=== PATIENT | female | born 1980 | race Caucasian/White ===

== ENCOUNTER 2019-06-24 12:38 | Emergency (ER) | payer OTHER, MEDICAID, SELFPAY ==
[2019-06-24] VITALS (11 sets, daily range): BP systolic 164–246; BP diastolic 74–119; PULSE 70–77; RESP 13–23; TEMP 36.2; O2SAT 98–100
--- NOTE | 2019-06-24 12:53 | DI.RAD.S_ITS ---
PROCEDURE: XR CHEST 1V INDICATIONS: chest pain TECHNIQUE: One view of the chest was acquired. COMPARISON: [facility], CR, XR CHEST 1 VIEW, 05/15/2019, 19:25. FINDINGS: Surgical changes and devices: None. Lungs and pleura: Unchanged appearance of bronchovascular crowding secondary to poor inspiratory effort. No consolidations or effusions. Mediastinum: Mediastinal contours appear normal. Heart size is normal. Bones and chest wall: No suspicious bony lesions. Overlying soft tissues appear unremarkable. IMPRESSION: No consolidations. Dictated by: Linda Cisse M.D. on 06/24/2019 at 12:16 Approved by: Linda Cisse M.D. on 06/24/2019 at 12:17
--- NOTE | 2019-06-24 13:09 | ED_ITS ---
HPI - Nausea/Vomiting/Diarrhea General Chief complaint: Nausea/Vomiting/Diarrhea Stated complaint: Vomitting and Pain Time Seen by Provider: 06/24/19 13:09 Source: patient Mode of arrival: Ambulatory Limitations: no limitations History of Present Illness HPI Narrative: 38-year-old woman type 1 diabetic for at least 20 years presents with increasing head pain, nausea and vomiting. She has never been officially diagnosed with migraines but is wondering if that is part of what is going on. Her current symptoms have worsened over the past 3 days. She describes no fevers, cough, chills, chest pain. She notes vomiting and diarrhea. Of note her blood sugars have not been more erratic over the past few days and she does have an insulin pump in place and regularly check some. Related Data Allergies Allergy/AdvReac Type Severity Reaction Status Date / Time No Known Drug Allergies Allergy Verified 06/24/19 13:57 Review of Systems Review of Systems Narrative: All systems reviewed and are unremarkable except as noted in HPI and below Patient History Medical History (Updated 06/24/19 @ 16:51 by Rhoda Roe MD) Type 1 diabetes (Acute) Social History Smoking Status: Former smoker Smoking Status: Former smoker alcohol intake frequency: 0-2 drinks per day Substance Use Type: does not use Exam Narrative Exam Narrative: General: In moderate distress due to headache pain. Able to give a complete and coherent history. Well-nourished well-developed HEENT: Moist mucous membranes, normal sclera with reactive pupils, Neck: No JVD, supple Respiratory: Lungs are clear to auscultation, no wheezing no rales no rhonchi. Full and symmetrical air movement Cardiac: Regular rate and rhythm no murmurs no bruits Abdomen: Soft nontender good bowel tones, no flank pain Skin: Warm and dry, no rashes Neurologic: Grossly neurologically intact with no obvious asymmetries or abnormalities Extremities: No trauma, well perfused Psych: Cooperative, appropriate insight and affect Initial Vital Signs Initial Vital Signs: Vital Signs Temperature 97.2 F L 06/24/19 12:48 Pulse Rate 77 06/24/19 12:48 Respiratory Rate 18 06/24/19 12:48 Blood Pressure 226/107 H 06/24/19 12:48 Pulse Oximetry 99 06/24/19 12:48 Course Orders Ordered: ED Orders 06/24/19 12:53 XR chest 1V Stat EKG-12 Lead Stat 06/24/19 13:32 Complete Blood Count AUTO DIFF Stat Comprehensive Metabolic Panel Stat Lipase Stat Partial Thromboplastin Time Stat Prothrombin Time INR Stat Troponin & CK Cardiac Panel Stat 06/24/19 15:43 Urine Microscopic Stat Sodium Chloride (Normal Saline 0.9%) 1,000 mls @ 1,000 mls/hr IV BOLUS PRN PRN Reason: Fluid replacement Last Infusion: 06/24/19 15:31 Dose: 0 mls/hr Documented by: Admin: 06/24/19 13:45 Dose: 1,000 mls/hr Documented by: SERGIO Discontinued Medications Diphenhydramine HCl (Benadryl) 25 mg IV NOW ONE Stop: 06/24/19 13:20 Last Admin: 06/24/19 13:46 Dose: 25 mg Documented by: SERGIO Ketorolac Tromethamine (Toradol) 15 mg IV NOW ONE Stop: 06/24/19 13:20 Last Admin: 06/24/19 13:46 Dose: 15 mg Documented by: SERGIO Labetalol HCl (Trandate) 20 mg IV NOW ONE Stop: 06/24/19 13:56 Last Admin: 06/24/19 13:58 Dose: 20 mg Documented by: SERGIO Metoclopramide HCl (Reglan) 10 mg IV NOW ONE Stop: 06/24/19 13:20 Last Admin: 06/24/19 13:46 Dose: 10 mg Documented by: SERGIO Vital Signs Vital signs: Vital Signs - 8 hr 06/24/19 12:48 06/24/19 13:20 06/24/19 13:30 Temperature 97.2 F L Pulse Rate 77 72 74 Respiratory Rate 18 16 Blood Pressure 226/107 H Blood Pressure [Right Arm] 237/105 H 227/98 H Pulse Oximetry 99 100 06/24/19 13:53 06/24/19 13:58 06/24/19 14:07 Temperature Pulse Rate 77 77 71 Respiratory Rate 18 18 Blood Pressure 246/119 H Blood Pressure [Right Arm] 246/119 H 219/95 H Pulse Oximetry 99 06/24/19 14:35 06/24/19 15:26 06/24/19 15:31 Temperature Pulse Rate 72 71 70 Respiratory Rate 18 23 Blood Pressure 180/110 H Blood Pressure [Right Arm] 180/77 H 181/86 H Pulse Oximetry 99 98 06/24/19 16:00 Temperature Pulse Rate 77 Respiratory Rate 18 Blood Pressure Blood Pressure [Right Arm] 196/87 H Pulse Oximetry 99 MDM - Nausea/Vomiting/Diarrhea Medical Records Attestation: I reviewed the patient's medical records. Lab Data Attestation: I reviewed the patient's lab results. Result diagrams: 06/24/19 13:32 06/24/19 13:32 Labs: Lab Results 06/24/19 06/24/19 06/24/19 Range/Units 13:32 13:32 13:32 WBC 12.1 H (4.5-11.0) X10^3/uL RBC 4.70 (4.0-5.2) X10^6/uL Hgb 13.6 (12.0-16.0) g/dL Hct 40.8 (36-46) % MCV 86.7 (80-100) fL MCH 28.8 (26-34) PG MCHC 33.3 (30-36) % RDW 12.9 (11.6-14.8) % Plt Count 342 (150-400) X10^3/uL Neut % (Auto) 87.0 H (50-75) % Lymph % (Auto) 9.3 L (25-40) % [place] % (Auto) 2.5 L (3-14) % Eos % (Auto) 0.5 L (2-4) % Baso % (Auto) 0.7 (0-2) % Neut # (Auto) 92117 H (1557-3408) /uL Lymph # (Auto) 1100 (5271-8190) /uL [place] # (Auto) 300 (0-900) /uL Eos # (Auto) 100 (0-450) /uL Baso # (Auto) 100 (0-100) /uL PT 10.3 (10.1-12.7) SECONDS INR 0.9 (0.9-1.3) APTT 32 (26.4-36.2) SECONDS Sodium 134 L (137-145) mmol/L Potassium 4.3 (3.4-5.1) mmol/L Chloride 103 (98-107) mmol/L Carbon Dioxide 26 (22-32) mmol/L BUN 20 H (7-17) mg/dL Creatinine 1.23 H (0.52-1.04) mg/dL Estimated GFR 49.1 L (>60) mL/min BUN/Creatinine Ratio 16.3 (6-22) Glucose 176 H (70-100) mg/dL Calcium 8.6 (8.4-10.2) mg/dL Total Bilirubin 0.3 (0.2-1.3) mg/dL AST 23 (14-36) IU/L ALT 18 (<35) IU/L Alkaline Phosphatase 99 (38-126) U/L Total Creatine Kinase 59 (30-135) U/L CK-MB (CK-2) TNP CK-MB (CK-2) Rel Index TNP Troponin I < 0.012 (0.01-0.034) ng/mL Total Protein 6.4 (6.3-8.2) g/dL Albumin 3.2 L (3.5-5.0) g/dL Globulin 3.2 (1.7-4.1) g/dL Albumin/Globulin Ratio 1.0 (1.0-2.8) Lipase 45 (23-300) U/L Urine RBC (0-5/HPF) Urine WBC (0-5/HPF) Ur Squamous Epith Cells (0-5/HPF) Amorphous Sediment Urine Bacteria (None) Hyaline Casts (None) Granular Casts (None) Ur Culture Indicated? 06/24/19 Range/Units 15:43 WBC (4.5-11.0) X10^3/uL RBC (4.0-5.2) X10^6/uL Hgb (12.0-16.0) g/dL Hct (36-46) % MCV (80-100) fL MCH (26-34) PG MCHC (30-36) % RDW (11.6-14.8) % Plt Count (150-400) X10^3/uL Neut % (Auto) (50-75) % Lymph % (Auto) (25-40) % [place] % (Auto) (3-14) % Eos % (Auto) (2-4) % Baso % (Auto) (0-2) % Neut # (Auto) (2983-7230) /uL Lymph # (Auto) (0176-4548) /uL [place] # (Auto) (0-900) /uL Eos # (Auto) (0-450) /uL Baso # (Auto) (0-100) /uL PT (10.1-12.7) SECONDS INR (0.9-1.3) APTT (26.4-36.2) SECONDS Sodium (137-145) mmol/L Potassium (3.4-5.1) mmol/L Chloride (98-107) mmol/L Carbon Dioxide (22-32) mmol/L BUN (7-17) mg/dL Creatinine (0.52-1.04) mg/dL Estimated GFR (>60) mL/min BUN/Creatinine Ratio (6-22) Glucose (70-100) mg/dL Calcium (8.4-10.2) mg/dL Total Bilirubin (0.2-1.3) mg/dL AST (14-36) IU/L ALT (<35) IU/L Alkaline Phosphatase (38-126) U/L Total Creatine Kinase (30-135) U/L CK-MB (CK-2) CK-MB (CK-2) Rel Index Troponin I (0.01-0.034) ng/mL Total Protein (6.3-8.2) g/dL Albumin (3.5-5.0) g/dL Globulin (1.7-4.1) g/dL Albumin/Globulin Ratio (1.0-2.8) Lipase (23-300) U/L Urine RBC 1-5/hpf (0-5/HPF) Urine WBC 1-5/hpf (0-5/HPF) Ur Squamous Epith Cells 0-1 /hpf (0-5/HPF) Amorphous Sediment 1+ Urine Bacteria Occasional (0-1) (None) Hyaline Casts 1-5/lpf (None) Granular Casts 0-1/lpf (None) Ur Culture Indicated? Cult not indicated Point of Care Testing Test Results Negative Glucose POC 135 Urine Dip Bedside Urine Glucose 250 mg/dl Bedside Urine Bilirubin - Negative Bedside Urine Ketone - Negative Urine Specific [place] 1.015 Bedside Urine Occult Blood +/- Bedside Urine pH 7.0 Bedside Urine Protein ++++ 2000 Bedside Urine Urobilinogen - Negative Bedside Urine Nitrite - Negative Bedside Urine Leukocytes - Negative Esterase Imaging Data Chest x-ray: Radiologist's Impression: IMPRESSION: No consolidations. Dictated by: Linda Cisse M.D. on 06/24/2019 at 12:16 ECG Data Attestation: I personally reviewed and interpreted this ECG as follows: Interpretation: Normal sinus rhythm at a rate of 72 Normal axis normal intervals R-wave in aVL is elevated suggesting possibility of developing left ventricular hypertrophy No acute ischemic changes MDM Narrative Medical decision making narrative: Type 1 diabetic followed by any control over in [place]. She believes that her baseline creatinine has been slightly elevated but isn't quite aware of the number. Last her to follow-up with any within the week to recheck. Also asked her to check blood pressures daily to again follow-up. With his elevated is they are she may need to be on medication both for renal protection as well as hypertension control Blood sugars have been doing nicely with her insulin pump no suggested changes She is significantly better on re-examination with headache resolved and she is hungry and ready for discharge. I believe that she is safe to discharge home Discharge Plan Departure Patient Disposition: Home Clinical Impression: Type 1 diabetes Qualifiers: Diabetes mellitus complication status: without complication Qualified Code(s): E10.9 - Type 1 diabetes mellitus without complications Headache Qualifiers: Headache type: unspecified Headache chronicity pattern: acute headache Int ractability: not intractable Qualified Code(s): R51 - Headache Hypertension Qualifiers: Hypertension type: unspecified Qualified Code(s): I10 - Essential (primary) hypertension Instructions: DI for Dehydration -- Adult Activity Restrictions/Additional Instructions: Thank you for coming in today I do not have an exact diagnosis for you but I am also not finding any life- threatening issues. Your creatinine was 1.3 today. Please follow-up with Janie Christine. We need to confirm that your creatinine is either improving or at your stable baseline and I would also like you to talk with her about your blood pressure. He said you do have a blood pressure cuff at home, please check your blood pressure at least once a day(you do not need to do anything at all with the number other than right down) and bring it in with you to your follow-up appointment If you find you have new or worsening symptoms, please return to the emergency department and I am happy to fully re-evaluate
[2019-06-24 13:42] LABS: Add Manual Diff / Slide Review NO; Basophils Absolute Auto 100 /uL (0-100); Basophils Percent Auto 0.7 % (0-2); Eosinophils Absolute Auto 100 /uL (0-450); Eosinophils Percent Auto 0.5 % (2-4); Hematocrit 40.8 % (36-46); Hemoglobin 13.6 g/dL (12.0-16.0); Lymphocytes Absolute Auto 1100 /uL (1100-4500); Lymphocytes Percent Auto 9.3 % (25-40); Mean Corpuscular HGB Conc 33.3 % (30-36); Mean Corpuscular Hemoglobin 28.8 PG (26-34); Mean Corpuscular Volume 86.7 fL (80-100); Monocytes Absolute Auto 300 /uL (0-900); Monocytes Percent Auto 2.5 % (3-14); Neutrophils Absolute Auto 10500 /uL (1500-7000); Platelet Count 342 X10^3/uL (150-400); Red Cell Distribution Width 12.9 % (11.6-14.8); White Blood Cell Count 12.1 X10^3/uL (4.5-11.0)
[2019-06-24] MEDS: SODIUM CHLORIDE 0.9% 1,000 ML 1000 ML IV (13:45)
[2019-06-24] MEDS: METOCLOPRAMIDE 10 MG/2 ML INJ IV (13:46)
[2019-06-24] MEDS: diphenhydrAMINE 50 MG/ML VIAL 25 MG IV (13:46)
[2019-06-24] MEDS: KETOROLAC 60 MG/2 ML VIAL 15 MG IV (13:46)
[2019-06-24 13:50] LABS: INR 0.9 (0.9-1.3); Prothrombin Time 10.3 SECONDS (10.1-12.7)
[2019-06-24 13:53] LABS: PTT Partial Thromboplastin Tim 32 SECONDS (26.4-36.2)
[2019-06-24] MEDS: LABETALOL 20 MG/4 ML SYRINGE IV (13:58)
[2019-06-24 14:07] LABS: Alanine Aminotransferase 18 IU/L (<35); Albumin 3.2 g/dL (3.5-5.0); Alkaline Phosphatase 99 U/L (38-126); Aspartate Aminotransferase 23 IU/L (14-36); BUN Creatinine Ratio 16.3 (6-22); Bilirubin Total 0.3 mg/dL (0.2-1.3); Blood Urea Nitrogen 20 mg/dL (7-17); Calcium 8.6 mg/dL (8.4-10.2); Carbon Dioxide 26 mmol/L (22-32); Chloride 103 mmol/L (98-107); Creatine Kinase 59 U/L (30-135); Estimated Glomerular Filt Rate 49.1 mL/min (>60); Globulin 3.2 g/dL (1.7-4.1); Glucose 176 mg/dL (70-100); HEMOLYSIS < 15 (0-50); Lipase 45 U/L (23-300); Potassium 4.3 mmol/L (3.4-5.1); Sodium 134 mmol/L (137-145); Total Protein 6.4 g/dL (6.3-8.2)
[2019-06-24 14:16] LABS: Troponin I < 0.012 ng/mL (0.01-0.034)
[2019-06-24 16:02] LABS: Amorphous Sediment Urine 1+; Bacteria Urine Occasional (0-1); Granular Casts Urine 0-1/LPF; Hyaline Casts Urine 1-5/LPF; RBC Urine 1-5/HPF (0-5/HPF); Squamous Epithelial Cell Urine 0-1 /HPF (0-5/HPF); WBC Urine 1-5/HPF (0-5/HPF)
[2019-06-24 16:03] LABS: Culture Indicated Urine Cult Not Indicated
== END 2019-06-24 17:05 | disposition home or self-care (01) ==
PROVIDERS: Emergency Provider Emergency Medicine
DX: E10.9 Type 1 diabetes mellitus without complications (principal); R51 Headache; I10 Essential (primary) hypertension; R11.2 Nausea with vomiting, unspecified; R07.9 Chest pain, unspecified
CPT/HCPCS: 36415; 71045; 80053; 81003; 81015; 81025; 82550; 82962; 83690; 84484; 85025; 85610; 85730; 93005; 96361; 96374; 96375; 99284; 99285; J1200; J1885; J2765

== ENCOUNTER → 2019-07-06 14:59 | Outpatient (CLI) | payer OTHER, MEDICAID, SELFPAY | PROVIDERS: Visit Provider Physician Assistant | DX: J02.9 Acute pharyngitis, unspecified (principal) | CPT/HCPCS: 87070 ==

== ENCOUNTER → 2019-07-07 11:47 | Outpatient (CLI) | payer OTHER, MEDICAID, SELFPAY ==
[2019-07-09 04:12] LABS: COVID19 Sendout Not Detected (Not Detected)
== END ==
PROVIDERS: Visit Provider Physician Assistant
DX: R05 Cough (principal)
CPT/HCPCS: 87635

== ENCOUNTER 2019-07-08 10:51 | Emergency (ER) | payer OTHER, MEDICAID, SELFPAY ==
[2019-07-08 11:00] VITALS: BP 185/109; PULSE 93; RESP 16; TEMP 36.7; O2SAT 97; BMI 36.6
--- NOTE | 2019-07-08 11:32 | DI.RAD.S_ITS ---
PROCEDURE: XR CHEST 2V INDICATIONS: cough, sob TECHNIQUE: 2 views of the chest were acquired. COMPARISON: Merged With [facility], CR, XR CHEST 1V, 06/24/2019, 12:55. FINDINGS: Surgical changes and devices: None. Lungs and pleura: There is questionable developing airspace disease within the lung bases. No effusion or pneumothorax is identified. Mediastinum: Mediastinal contours are normal. Heart size is normal. Bones and chest wall: No suspicious bony abnormalities. Soft tissues appear unremarkable. IMPRESSION: Possible developing basilar airspace disease is concerning for pneumonia. Dictated by: Jerzy Juarez M.D. on 07/08/2019 at 10:55 Approved by: Jerzy Juarez M.D. on 07/08/2019 at 10:55
--- NOTE | 2019-07-08 11:35 | ED_ITS ---
HPI - URI/Sore Throat <Jimena Villaseñor, FORESTRY HUNTER-BC - Last Filed: 07/08/19 16:09> General Chief Complaint: Upper Respiratory Symptoms Stated Complaint: High BP, cough, sore throat, earache Time Seen by Provider: 07/08/19 11:09 Source: patient Mode of arrival: Ambulatory Limitations: no limitations History of Present Illness HPI Narrative: The patient is a 38-year-old female nonsmoker with history of type 1 diabetes who presents for chief of multiple medical complaints. She presents with a chief complaint of cough, earache, sore throat and high blood pressure. She states she was seen and evaluated this facility approximately 2 weeks ago for a migraine, high blood pressure and was discharged. She states she was seen at the walk-in clinic on the of this month, had a throat culture and rapid strep done. She returned on 07/06 for covid19 testing. The patient states that she has had cough and congestion symptoms since 07/05. She states that she has had headaches every day for the past several weeks, starting in the morning when she wakes up. She took 2 ibuprofen with methocarbamol from [facility] earlier today. She states that she took her home blood pressure and found it to be over 200 systolic, she called her primary care provider who is with [facility] and [place] who told her she was having a hypertensive emergency and to come to the emergency department right away. She denies any chest pain she states that her headache is actually better than it has been recently. Patient states that she feels much better than she was 2 weeks ago, which she states she had such a bad headache that she was vomiting. She states she has not followed up with her primary care provider in person since her emergency department visit on 06/24/2019. She states that when she was here 2 weeks ago, she found that her creatinine was elevated, but does not know it was beforehand. She does have a history of type 1 diabetes, states that her blood sugars are very well controlled. She denies any abdominal pain nausea vomiting or diarrhea. Related Data Previous Rx's Medication Instructions Recorded doxycycline hyclate 100 mg PO BID #20 cap 07/08/19 lisinopril 5 mg PO DAILY #20 tab 07/08/19 Allergies Allergy/AdvReac Type Severity Reaction Status Date / Time No Known Drug Allergies Allergy Verified 07/06/19 14:44 Review of Systems <FRANKO Kuhn-BC - Last Filed: 07/08/19 16:09> Review of Systems Narrative: GENERAL: Denies chills, fatigue, malaise, fever, sweats. HEENT: See HPI RESPIRATORY: See HPI CARDIOVASCULAR: Denies chest pain, palpitations, orthopnea, edema, GASTROINTESTINAL: Denies nausea, vomiting, abdominal pain, diarrhea, constip ation, melena. : Denies dysuria, frequency, incontinence, hematuria, urinary retention. MUSCULOSKELETAL: denies weakness, joint pain, or bony pain SKIN: Denies rash, skin lesions, or other NEUROLOGIC: Denies weakness, headache, numbness, change in speech, confusion, seizures, incoordination. PSYCHIATRIC: No concerning psychosocial issues. 12 point review of systems is negative except for those stated above Patient History <RAMANA Kuhn - Last Filed: 07/08/19 16:09> Medical History (Updated 07/09/19 @ 00:01 by ) Type 1 diabetes (Acute) Social History Smoking Status: Never smoker Smoking Status: Never smoker alcohol intake frequency: 0-2 drinks per day Substance Use Type: does not use Exam <RAMANA Kuhn - Last Filed: 07/08/19 16:09> Narrative Exam Narrative: GENERAL: This is a well-nourished, well-developed patient, in no acute distress HEAD: Atraumatic. Normocephalic. No temporal or scalp tenderness. EYES: Pupils equal round and reactive. Extraocular motions intact. No scleral icterus. No injection or drainage. ENT: Nose without bleeding, purulent drainage or septal hematoma. Throat without erythema, tonsillar hypertrophy or exudate. Uvula midline. Airway patent. Bilateral TMs pearly brownlee. NECK: Trachea midline. No JVD or lymphadenopathy. Supple, nontender, no meningeal signs. CARDIOVASCULAR: Regular rate and rhythm RESPIRATORY: Clear to auscultation. Breath sounds equal bilaterally. No wheezes, rales, or rhonchi. No cough. No increased respiratory effort. No accessory muscle use. GASTROINTESTINAL: Abdomen soft, non-tender, nondistended. No hepato- splenomegaly, or palpable masses. No guarding. EXTREMITIES: No clubbing, cyanosis, or edema. No joint tenderness, effusion, or edema noted. BACK: Nontender without deformity or crepitance. No flank tenderness. NEURO: AOx3. SKIN: No rash or erythema. Initial Vital Signs Initial Vital Signs: Vital Signs Temperature 98.0 F 07/08/19 11:00 Pulse Rate 93 H 07/08/19 11:00 Respiratory Rate 16 07/08/19 11:00 Blood Pressure 185/109 H 07/08/19 11:00 Pulse Oximetry 97 07/08/19 11:00 <Rhoda Roe MD - Last Filed: 07/09/19 07:04> Initial Vital Signs Initial Vital Signs: Vital Signs Temperature 98.0 F 07/08/19 11:00 Pulse Rate 93 H 07/08/19 11:00 Respiratory Rate 16 07/08/19 11:00 Blood Pressure 185/109 H 07/08/19 11:00 Pulse Oximetry 97 07/08/19 11:00 Course <FRANKO Kuhn-BC - Last Filed: 07/08/19 16:09> Orders Ordered: Discontinued Medications Diphenhydramine HCl (Benadryl) 25 mg IV NOW ONE Stop: 07/08/19 12:02 Last Admin: 07/08/19 12:31 Dose: 25 mg Documented by: DAE Sodium Chloride (Normal Saline 0.9%) 1,000 mls @ 1,000 mls/hr IV BOLUS ONE Stop: 07/08/19 13:00 Last Infusion: 07/08/19 14:14 Dose: 0 mls/hr Documented by: Admin: 07/08/19 12:31 Dose: 1,000 mls/hr Documented by: DAE Ketorolac Tromethamine (Toradol) 15 mg IV NOW ONE Stop: 07/08/19 12:02 Last Admin: 07/08/19 12:32 Dose: 15 mg Documented by: DAE Lisinopril (Zestril) 5 mg PO NOW ONE Stop: 07/08/19 13:50 Last Admin: 07/08/19 14:08 Dose: 5 mg Documented by: GALEN Vital Signs Vital signs: Vital Signs - 8 hr 07/08/19 11:00 07/08/19 12:25 07/08/19 14:49 Temperature 98.0 F Pulse Rate 93 H 74 80 Respiratory Rate 16 14 16 Blood Pressure 185/109 H Blood Pressure [Left Arm] 190/93 H 218/101 H Pulse Oximetry 97 100 98 <Rhoda Roe MD - Last Filed: 07/09/19 07:04> Orders Ordered: Discontinued Medications Diphenhydramine HCl (Benadryl) 25 mg IV NOW ONE Stop: 07/08/19 12:02 Last Admin: 07/08/19 12:31 Dose: 25 mg Documented by: DAE Sodium Chloride (Normal Saline 0.9%) 1,000 mls @ 1,000 mls/hr IV BOLUS ONE Stop: 07/08/19 13:00 Last Infusion: 07/08/19 14:14 Dose: 0 mls/hr Documented by: Admin: 07/08/19 12:31 Dose: 1,000 mls/hr Documented by: DAE Ketorolac Tromethamine (Toradol) 15 mg IV NOW ONE Stop: 07/08/19 12:02 Last Admin: 07/08/19 12:32 Dose: 15 mg Documented by: DAE Lisinopril (Zestril) 5 mg PO NOW ONE Stop: 07/08/19 13:50 Last Admin: 07/08/19 14:08 Dose: 5 mg Documented by: GALEN Vital Signs Vital signs: Vital Signs - 8 hr 07/08/19 11:00 07/08/19 12:25 07/08/19 14:49 Temperature 98.0 F Pulse Rate 93 H 74 80 Respiratory Rate 16 14 16 Blood Pressure 185/109 H Blood Pressure [Left Arm] 190/93 H 218/101 H Pulse Oximetry 97 100 98 MDM - URI/Sore Throat <SASHA Kuhn - Last Filed: 07/08/19 16:09> Lab Data Result diagrams: 07/08/19 12:20 07/08/19 12:20 Labs: Lab Results 07/08/19 07/08/19 07/08/19 Range/Units 12:20 12:20 12:20 WBC 12.5 H (4.5-11.0) X10^3/uL RBC 4.87 (4.0-5.2) X10^6/uL Hgb 14.2 (12.0-16.0) g/dL Hct 41.8 (36-46) % MCV 85.8 (80-100) fL MCH 29.2 (26-34) PG MCHC 34.0 (30-36) % RDW 12.4 (11.6-14.8) % Plt Count 338 (150-400) X10^3/uL Neut % (Auto) 73.5 (50-75) % Lymph % (Auto) 18.1 L (25-40) % [place] % (Auto) 5.2 (3-14) % Eos % (Auto) 2.6 (2-4) % Baso % (Auto) 0.6 (0-2) % Neut # (Auto) 9200 H (8159-7562) /uL Lymph # (Auto) 2300 (6578-5510) /uL [place] # (Auto) 700 (0-900) /uL Eos # (Auto) 300 (0-450) /uL Baso # (Auto) 100 (0-100) /uL PT 10.9 (10.1-12.7) SECONDS INR 1.0 (0.9-1.3) APTT 36 D (26.4-36.2) SECONDS Sodium 135 L (137-145) mmol/L Potassium 4.2 (3.4-5.1) mmol/L Chloride 104 (98-107) mmol/L Carbon Dioxide 28 (22-32) mmol/L BUN 21 H (7-17) mg/dL Creatinine 1.50 H (0.52-1.04) mg/dL Estimated GFR 39.1 L (>60) mL/min BUN/Creatinine Ratio 14.0 (6-22) Glucose 142 H (70-100) mg/dL Calcium 8.7 (8.4-10.2) mg/dL Total Bilirubin 0.3 (0.2-1.3) mg/dL AST 17 (14-36) IU/L ALT 14 (<35) IU/L Alkaline Phosphatase 102 (38-126) U/L Total Creatine Kinase 46 (30-135) U/L CK-MB (CK-2) TNP CK-MB (CK-2) Rel Index TNP Troponin I < 0.012 (0.01-0.034) ng/mL Total Protein 6.7 (6.3-8.2) g/dL Albumin 3.3 L (3.5-5.0) g/dL Globulin 3.4 (1.7-4.1) g/dL Albumin/Globulin Ratio 1.0 (1.0-2.8) Urine Color Urine Appearance Urine pH Ur Specific [place] Urine Protein Urine Glucose (UA) Urine Ketones Urine Occult Blood Urine Nitrate Urine Bilirubin Urine Urobilinogen Ur Leukocyte Esterase Urine RBC (0-5/HPF) Urine WBC (0-5/HPF) Ur Squamous Epith Cells (0-5/HPF) Amorphous Sediment Urine Bacteria (None) Hyaline Casts (None) Granular Casts (None) Ur Culture Indicated? Chlamy pneumoniae PCR (Not Detect) Adenovirus (PCR) (Not Detect) B.parapertussis DNA PCR (Not Detect) Coronavirus OC43 (PCR) (Not Detect) Coronavirus HKU1 (PCR) (Not Detect) Coronavirus 229E (PCR) (Not Detect) Coronavirus NL63 (PCR) (Not Detect) Human Metapneumovir PCR (Not Detect) Influenza Type A (PCR) (Not Detect) Influenza Type B (PCR) (Not Detect) M. pneumoniae (PCR) (Not Detect) Parainfluenza 1 (PCR) (Not Detect) Parainfluenza 2 (PCR) (Not Detect) Parainfluenza 3 (PCR) (Not Detect) Parainfluenza 4 (PCR) (Not Detect) RSV (PCR) (Not Detect) Entero/Rhino (PCR) (Not Detect) 07/08/19 07/08/19 Range/Units 12:20 12:27 WBC (4.5-11.0) X10^3/uL RBC (4.0-5.2) X10^6/uL Hgb (12.0-16.0) g/dL Hct (36-46) % MCV (80-100) fL MCH (26-34) PG MCHC (30-36) % RDW (11.6-14.8) % Plt Count (150-400) X10^3/uL Neut % (Auto) (50-75) % Lymph % (Auto) (25-40) % [place] % (Auto) (3-14) % Eos % (Auto) (2-4) % Baso % (Auto) (0-2) % Neut # (Auto) (7002-5175) /uL Lymph # (Auto) (5304-0494) /uL [place] # (Auto) (0-900) /uL Eos # (Auto) (0-450) /uL Baso # (Auto) (0-100) /uL PT (10.1-12.7) SECONDS INR (0.9-1.3) APTT (26.4-36.2) SECONDS Sodium (137-145) mmol/L Potassium (3.4-5.1) mmol/L Chloride (98-107) mmol/L Carbon Dioxide (22-32) mmol/L BUN (7-17) mg/dL Creatinine (0.52-1.04) mg/dL Estimated GFR (>60) mL/min BUN/Creatinine Ratio (6-22) Glucose (70-100) mg/dL Calcium (8.4-10.2) mg/dL Total Bilirubin (0.2-1.3) mg/dL AST (14-36) IU/L ALT (<35) IU/L Alkaline Phosphatase (38-126) U/L Total Creatine Kinase (30-135) U/L CK-MB (CK-2) CK-MB (CK-2) Rel Index Troponin I (0.01-0.034) ng/mL Total Protein (6.3-8.2) g/dL Albumin (3.5-5.0) g/dL Globulin (1.7-4.1) g/dL Albumin/Globulin Ratio (1.0-2.8) Urine Color Cancelled Urine Appearance Cancelled Urine pH Cancelled Ur Specific [place] Cancelled Urine Protein Cancelled Urine Glucose (UA) Cancelled Urine Ketones Cancelled Urine Occult Blood Cancelled Urine Nitrate Cancelled Urine Bilirubin Cancelled Urine Urobilinogen Cancelled Ur Leukocyte Esterase Cancelled Urine RBC 0-1/hpf (0-5/HPF) Urine WBC 0-1/hpf (0-5/HPF) Ur Squamous Epith Cells 0-1 /hpf (0-5/HPF) Amorphous Sediment 1+ Urine Bacteria Occasional (0-1) (None) Hyaline Casts 5-10/lpf (None) Granular Casts 1-5/lpf (None) Ur Culture Indicated? Cult not indicated Chlamy pneumoniae PCR Not detected (Not Detect) Adenovirus (PCR) Not detected (Not Detect) B.parapertussis DNA PCR Not detected (Not Detect) Coronavirus OC43 (PCR) Not detected (Not Detect) Coronavirus HKU1 (PCR) Not detected (Not Detect) Coronavirus 229E (PCR) Not detected (Not Detect) Coronavirus NL63 (PCR) Not detected (Not Detect) Human Metapneumovir PCR Not detected (Not Detect) Influenza Type A (PCR) Not detected (Not Detect) Influenza Type B (PCR) Not detected (Not Detect) M. pneumoniae (PCR) Not detected (Not Detect) Parainfluenza 1 (PCR) Not detected (Not Detect) Parainfluenza 2 (PCR) Not detected (Not Detect) Parainfluenza 3 (PCR) Not detected (Not Detect) Parainfluenza 4 (PCR) Not detected (Not Detect) RSV (PCR) Not detected (Not Detect) Entero/Rhino (PCR) Not detected (Not Detect) Point of Care Testing Test Results Negative Urine Dip Bedside Urine Glucose 500 mg/dl Bedside Urine Bilirubin + 1 Bedside Urine Ketone - Negative Urine Specific [place] 1.025 Bedside Urine Occult Blood +/- Bedside Urine pH 6.0 Bedside Urine Protein ++ 100 Bedside Urine Urobilinogen - Negative Bedside Urine Nitrite - Negative Bedside Urine Leukocytes - Negative Esterase Imaging Data Chest x-ray: Radiologist's Impression: [address] [place] [id number] XRay Report Signed Patient: Valeri Patel LMR#: [id number] : 1980Acct:[id number] Age/Sex: 38 / FDate of Service: 07/08/19 Loc: ED Accession Number: [id number] Procedure: XR chest 2V Ordering Provider: Jimena Villaseñor PROCEDURE: XR CHEST 2V INDICATIONS: cough, sob TECHNIQUE: 2 views of the chest were acquired. COMPARISON: [facility], , XR CHEST 1V, 06/24/2019, 12:55. FINDINGS: Surgical changes and devices: None. Lungs and pleura: There is questionable developing airspace disease within the lung bases. No effusion or pneumothorax is identified. Mediastinum: Mediastinal contours are normal. Heart size is normal. Bones and chest wall: No suspicious bony abnormalities. Soft tissues appear unremarkable. IMPRESSION: Possible developing basilar airspace disease is concerning for pneumonia. Dictated by: Jerzy Juarez M.D. on 07/08/2019 at 10:55 Approved by: Jerzy Juarez M.D. on 07/08/2019 at 10:55 ECG Data Attestation: I personally reviewed and interpreted this ECG as follows: Interpretation: Sinus rhythm. Ventricular rate 70. P.r. interval 166. QRS duration of 111.Viewed by Dr Jyothi SIGALA Narrative Medical decision making narrative: The patient is a 38-year-old female who presents with chief complaint of high blood pressure, cough sore throat hearing. She stated that her blood pressure at home was 200 systolic injuries found to be 190s here. Her recent strep rapid is negative, she is a throat culture pending, she has fraga virus testing pending at this point time. X-ray is concerning for bibasilar pneumonia, so she was started on doxycycline the emergency department. She is noted to be hypertensive, which is consistent from her previous visit 2 weeks ago. She is a type 1 diabetic, and would benefit from better blood pressure control and a renal protective MICHAEL-inhibitor. She received 1st dose of lisinopril in the emergency department. Her respiratory panel came back negative. I discussed at length the importance of following up with primary care provider next few days. Of note is prior to discharge, the patient was found to be more hypertensive than earlier, with a pressure of 218/101. The patient denied any headache, chest pain for a concerning symptoms and stated she wanted to leave despite her blood pressure. She ambulated outside the emergency department with no acute concerns. Discussed at length the importance of coming back to the emergency department for any acute concerns such as concern of heart attack stroke etcetera. Patient has no questions or concerns upon discharge and states understanding return precautions as well as follow-up care. <Rhoda Roe MD - Last Filed: 07/09/19 07:04> Lab Data Labs: Lab Results 07/08/19 07/08/19 07/08/19 Range/Units 12:20 12:20 12:20 WBC 12.5 H (4.5-11.0) X10^3/uL RBC 4.87 (4.0-5.2) X10^6/uL Hgb 14.2 (12.0-16.0) g/dL Hct 41.8 (36-46) % MCV 85.8 (80-100) fL MCH 29.2 (26-34) PG MCHC 34.0 (30-36) % RDW 12.4 (11.6-14.8) % Plt Count 338 (150-400) X10^3/uL Neut % (Auto) 73.5 (50-75) % Lymph % (Auto) 18.1 L (25-40) % [place] % (Auto) 5.2 (3-14) % Eos % (Auto) 2.6 (2-4) % Baso % (Auto) 0.6 (0-2) % Neut # (Auto) 9200 H (1122-5386) /uL Lymph # (Auto) 2300 (0429-5423) /uL [place] # (Auto) 700 (0-900) /uL Eos # (Auto) 300 (0-450) /uL Baso # (Auto) 100 (0-100) /uL PT 10.9 (10.1-12.7) SECONDS INR 1.0 (0.9-1.3) APTT 36 D (26.4-36.2) SECONDS Sodium 135 L (137-145) mmol/L Potassium 4.2 (3.4-5.1) mmol/L Chloride 104 (98-107) mmol/L Carbon Dioxide 28 (22-32) mmol/L BUN 21 H (7-17) mg/dL Creatinine 1.50 H (0.52-1.04) mg/dL Estimated GFR 39.1 L (>60) mL/min BUN/Creatinine Ratio 14.0 (6-22) Glucose 142 H (70-100) mg/dL Calcium 8.7 (8.4-10.2) mg/dL Total Bilirubin 0.3 (0.2-1.3) mg/dL AST 17 (14-36) IU/L ALT 14 (<35) IU/L Alkaline Phosphatase 102 (38-126) U/L Total Creatine Kinase 46 (30-135) U/L CK-MB (CK-2) TNP CK-MB (CK-2) Rel Index TNP Troponin I < 0.012 (0.01-0.034) ng/mL Total Protein 6.7 (6.3-8.2) g/dL Albumin 3.3 L (3.5-5.0) g/dL Globulin 3.4 (1.7-4.1) g/dL Albumin/Globulin Ratio 1.0 (1.0-2.8) Urine Color Urine Appearance Urine pH Ur Specific [place] Urine Protein Urine Glucose (UA) Urine Ketones Urine Occult Blood Urine Nitrate Urine Bilirubin Urine Urobilinogen Ur Leukocyte Esterase Urine RBC (0-5/HPF) Urine WBC (0-5/HPF) Ur Squamous Epith Cells (0-5/HPF) Amorphous Sediment Urine Bacteria (None) Hyaline Casts (None) Granular Casts (None) Ur Culture Indicated? Chlamy pneumoniae PCR (Not Detect) Adenovirus (PCR) (Not Detect) B.parapertussis DNA PCR (Not Detect) Coronavirus OC43 (PCR) (Not Detect) Coronavirus HKU1 (PCR) (Not Detect) Coronavirus 229E (PCR) (Not Detect) Coronavirus NL63 (PCR) (Not Detect) Human Metapneumovir PCR (Not Detect) Influenza Type A (PCR) (Not Detect) Influenza Type B (PCR) (Not Detect) M. pneumoniae (PCR) (Not Detect) Parainfluenza 1 (PCR) (Not Detect) Parainfluenza 2 (PCR) (Not Detect) Parainfluenza 3 (PCR) (Not Detect) Parainfluenza 4 (PCR) (Not Detect) RSV (PCR) (Not Detect) Entero/Rhino (PCR) (Not Detect) 07/08/19 07/08/19 Range/Units 12:20 12:27 WBC (4.5-11.0) X10^3/uL RBC (4.0-5.2) X10^6/uL Hgb (12.0-16.0) g/dL Hct (36-46) % MCV (80-100) fL MCH (26-34) PG MCHC (30-36) % RDW (11.6-14.8) % Plt Count (150-400) X10^3/uL Neut % (Auto) (50-75) % Lymph % (Auto) (25-40) % [place] % (Auto) (3-14) % Eos % (Auto) (2-4) % Baso % (Auto) (0-2) % Neut # (Auto) (6338-2406) /uL Lymph # (Auto) (7527-3319) /uL [place] # (Auto) (0-900) /uL Eos # (Auto) (0-450) /uL Baso # (Auto) (0-100) /uL PT (10.1-12.7) SECONDS INR (0.9-1.3) APTT (26.4-36.2) SECONDS Sodium (137-145) mmol/L Potassium (3.4-5.1) mmol/L Chloride (98-107) mmol/L Carbon Dioxide (22-32) mmol/L BUN (7-17) mg/dL Creatinine (0.52-1.04) mg/dL Estimated GFR (>60) mL/min BUN/Creatinine Ratio (6-22) Glucose (70-100) mg/dL Calcium (8.4-10.2) mg/dL Total Bilirubin (0.2-1.3) mg/dL AST (14-36) IU/L ALT (<35) IU/L Alkaline Phosphatase (38-126) U/L Total Creatine Kinase (30-135) U/L CK-MB (CK-2) CK-MB (CK-2) Rel Index Troponin I (0.01-0.034) ng/mL Total Protein (6.3-8.2) g/dL Albumin (3.5-5.0) g/dL Globulin (1.7-4.1) g/dL Albumin/Globulin Ratio (1.0-2.8) Urine Color Cancelled Urine Appearance Cancelled Urine pH Cancelled Ur Specific [place] Cancelled Urine Protein Cancelled Urine Glucose (UA) Cancelled Urine Ketones Cancelled Urine Occult Blood Cancelled Urine Nitrate Cancelled Urine Bilirubin Cancelled Urine Urobilinogen Cancelled Ur Leukocyte Esterase Cancelled Urine RBC 0-1/hpf (0-5/HPF) Urine WBC 0-1/hpf (0-5/HPF) Ur Squamous Epith Cells 0-1 /hpf (0-5/HPF) Amorphous Sediment 1+ Urine Bacteria Occasional (0-1) (None) Hyaline Casts 5-10/lpf (None) Granular Casts 1-5/lpf (None) Ur Culture Indicated? Cult not indicated Chlamy pneumoniae PCR Not detected (Not Detect) Adenovirus (PCR) Not detected (Not Detect) B.parapertussis DNA PCR Not detected (Not Detect) Coronavirus OC43 (PCR) Not detected (Not Detect) Coronavirus HKU1 (PCR) Not detected (Not Detect) Coronavirus 229E (PCR) Not detected (Not Detect) Coronavirus NL63 (PCR) Not detected (Not Detect) Human Metapneumovir PCR Not detected (Not Detect) Influenza Type A (PCR) Not detected (Not Detect) Influenza Type B (PCR) Not detected (Not Detect) M. pneumoniae (PCR) Not detected (Not Detect) Parainfluenza 1 (PCR) Not detected (Not Detect) Parainfluenza 2 (PCR) Not detected (Not Detect) Parainfluenza 3 (PCR) Not detected (Not Detect) Parainfluenza 4 (PCR) Not detected (Not Detect) RSV (PCR) Not detected (Not Detect) Entero/Rhino (PCR) Not detected (Not Detect) Point of Care Testing Test Results Negative Urine Dip Bedside Urine Glucose 500 mg/dl Bedside Urine Bilirubin + 1 Bedside Urine Ketone - Negative Urine Specific [place] 1.025 Bedside Urine Occult Blood +/- Bedside Urine pH 6.0 Bedside Urine Protein ++ 100 Bedside Urine Urobilinogen - Negative Bedside Urine Nitrite - Negative Bedside Urine Leukocytes - Negative Esterase Discharge Plan Departure Patient Disposition: Home Clinical Impression: Headache, Hypertension Pneumonia Qualifiers: Pneumonia type: due to unspecified organism Laterality: unspecified laterality Lung location: lower lobe of lung Qualified Code(s): J18.9 - Pneumonia, unspecified organism Discharge Date/Time: 07/08/19 14:56 Instructions: High Blood Pressure (Hypertension) (Alternative Therapy), Essential Hypertension, DI for Pneumonia -- Adult, DI for Headache Activity Restrictions/Additional Instructions: Thank you for trusting us with your care today Your respiratory panel came back negative today. Your chest x-ray is concerning for pneumonia, so I sent in a prescription of antibiotic. Please take this with a yogurt or probiotic. We have elected to start treating your blood pressure with lisinopril. I also sent in a prescription of this. It is very important that you follow-up with primary care provider in the next few days. Please come back to the emergency department for any acute concerns such as concern of heart attack, stroke, inability keep down fluids etcetera Prescriptions: New doxycycline hyclate 100 mg capsule 100 mg PO BID Qty: 20 RF: 0 lisinopril 5 mg tablet 5 mg PO DAILY Qty: 20 RF: 0 Referrals: Grant Wilson MD [Primary Care Provider] -
[2019-07-08 12:25] VITALS: BP 190/93; PULSE 74; RESP 14; O2SAT 100
[2019-07-08] MEDS: diphenhydrAMINE 50 MG/ML VIAL 25 MG IV (12:31)
[2019-07-08] MEDS: SODIUM CHLORIDE 0.9% 1,000 ML 1000 ML IV (12:31)
[2019-07-08] MEDS: KETOROLAC 60 MG/2 ML VIAL 15 MG IV (12:32)
[2019-07-08 12:44] LABS: Bacteria Urine Occasional (0-1); Culture Indicated Urine Cult Not Indicated; Granular Casts Urine 1-5/LPF; Hyaline Casts Urine 5-10/LPF; RBC Urine 0-1/HPF (0-5/HPF); Squamous Epithelial Cell Urine 0-1 /HPF (0-5/HPF); WBC Urine 0-1/HPF (0-5/HPF)
[2019-07-08 12:45] LABS: Amorphous Sediment Urine 1+
[2019-07-08 12:49] LABS: Add Manual Diff / Slide Review NO; Basophils Absolute Auto 100 /uL (0-100); Basophils Percent Auto 0.6 % (0-2); Eosinophils Absolute Auto 300 /uL (0-450); Eosinophils Percent Auto 2.6 % (2-4); Hematocrit 41.8 % (36-46); Hemoglobin 14.2 g/dL (12.0-16.0); Lymphocytes Absolute Auto 2300 /uL (1100-4500); Lymphocytes Percent Auto 18.1 % (25-40); Mean Corpuscular Hemoglobin 29.2 PG (26-34); Mean Corpuscular Volume 85.8 fL (80-100); Monocytes Absolute Auto 700 /uL (0-900); Monocytes Percent Auto 5.2 % (3-14); Neutrophils Absolute Auto 9200 /uL (1500-7000); Neutrophils Percent Auto 73.5 % (50-75); Platelet Count 338 X10^3/uL (150-400); Red Blood Cell Count 4.87 X10^6/uL (4.0-5.2); Red Cell Distribution Width 12.4 % (11.6-14.8); White Blood Cell Count 12.5 X10^3/uL (4.5-11.0)
[2019-07-08 12:54] LABS: Prothrombin Time 10.9 SECONDS (10.1-12.7)
[2019-07-08 12:56] LABS: PTT Partial Thromboplastin Tim 36 SECONDS (26.4-36.2)
[2019-07-08 13:01] LABS: Alanine Aminotransferase 14 IU/L (<35); Albumin 3.3 g/dL (3.5-5.0); Alkaline Phosphatase 102 U/L (38-126); Aspartate Aminotransferase 17 IU/L (14-36); Bilirubin Total 0.3 mg/dL (0.2-1.3); Blood Urea Nitrogen 21 mg/dL (7-17); Calcium 8.7 mg/dL (8.4-10.2); Carbon Dioxide 28 mmol/L (22-32); Chloride 104 mmol/L (98-107); Creatine Kinase 46 U/L (30-135); Estimated Glomerular Filt Rate 39.1 mL/min (>60); Globulin 3.4 g/dL (1.7-4.1); Glucose 142 mg/dL (70-100); HEMOLYSIS < 15 (0-50); Potassium 4.2 mmol/L (3.4-5.1); Sodium 135 mmol/L (137-145); Total Protein 6.7 g/dL (6.3-8.2)
[2019-07-08 13:13] LABS: Troponin I < 0.012 ng/mL (0.01-0.034)
[2019-07-08 13:55] LABS: Adenovirus Not Detected (Not Detect); Bordetella pertussis Not Detected (Not Detect); Chlamydophila pneumoniae Not Detected (Not Detect); Coronavirus 229E Not Detected (Not Detect); Coronavirus HKU1 Not Detected (Not Detect); Coronavirus NL 63 Not Detected (Not Detect); Coronavirus OC43 Not Detected (Not Detect); Human Metapneumovirus Not Detected (Not Detect); Human Rhinovirus/Enterovirus Not Detected (Not Detect); Influenza A Not Detected (Not Detect); Influenza B Not Detected (Not Detect); Mycoplasma pneumoniae Not Detected (Not Detect); Parainfluenza Virus 1 Not Detected (Not Detect); Parainfluenza Virus 2 Not Detected (Not Detect); Parainfluenza Virus 3 Not Detected (Not Detect); Parainfluenza Virus 4 Not Detected (Not Detect); Respiratory Syncytial Virus Not Detected (Not Detect)
[2019-07-08] MEDS: lisinopriL 5 MG TABLET PO (14:08)
[2019-07-08 14:49] VITALS: BP 218/101; PULSE 80; RESP 16; O2SAT 98
== END 2019-07-08 14:56 | disposition home or self-care (01) ==
PROVIDERS: Emergency Provider Nurse Practitioner Family; PCP Family Medicine; Referring Provider Family Medicine
DX: J18.9 Pneumonia, unspecified organism (principal); R51 Headache; I10 Essential (primary) hypertension; E10.8 Type 1 diabetes mellitus with unspecified complications
CPT/HCPCS: 36415; 71046; 80053; 81003; 81015; 81025; 82550; 84484; 85025; 85610; 85730; 87633; 93005; 96361; 96374; 96375; 99284; J1200; J1885